=== PATIENT | female | born 1970 | race American Indian/Alaskan Native ===

== ENCOUNTER 2018-11-30 09:17 | Day surgery (SDC) | payer OTHER ==
[2018-11-27 14:23] LABS: Absolute Lymphocytes (CBC) 1.3 K/uL (0.7-4.9); Absolute Monocytes 0.5 K/uL (0.1-1.3); Basophils % 0.9 % (0-1.3); Hematocrit 38.5 % (36.0-45.0); Lymphocytes % 21.9 % (15.3-44.8); MPV 8.8 fL (7.6-11.3); Monocytes % 8.2 % (3.3-12.3)
[2018-11-27 14:43] LABS: Urine Appearance CLEAR; Urine Bilirubin NEGATIVE (NEG); Urine Blood NEGATIVE (NEG); Urine Color YELLOW; Urine Glucose NEGATIVE (NEG); Urine Protein NEGATIVE (NEG); Urine Urobilinogen 0.2 mg/dL (0.2-1.0)
[2018-11-27 14:47] LABS: Urine Microscopic Reflex NO UMIC
[~2018-11-30 09:17] MED LIST: CEFAZOLIN/SWI 2gm 2 GM/20 ML SYR IVP SCH; Ringers Lactate 1,000 ML IV SCH; SCOPOLAMINE HYDROBROMIDE PATCH TD SCH
[2018-11-30] MEDS ORDERED: Ringers Lactate 1,000 ML IV ONE (09:35)
[2018-11-30] MEDS ORDERED: SCOPOLAMINE HYDROBROMIDE PATCH TD ONE (09:35)
--- OUTSIDE RECORDS SUMMARY | 2018-11-30 09:37 | XMS REPORT | Clinical Summary ---
:1970 Author Organization [facility] Address [address] [place] [address] Care Team Providers Name Role Phone Marylin Nelson MD Primary Care Provider Allergies No Known Allergies Medications No known medications Active Problems No known active problems Encounters Date Type Specialty Care Team Description 09/20/2018 Office Visit Urology Jessika Quezada Urinary frequency (Primary Dx); MD Eric Polyuria; Polydipsia 08/02/2018 Office Visit Urology Jessika Quezada Urinary frequency (Primary Dx); MD Eric Weakness of both legs; Dyspareunia in female after 11/29/2017 Social History Tobacco Use Types Packs/Day Years Used Date Unknown If Ever Smoked Sex Assigned at Date Recorded Not on file Job Start Date Occupation Industry Not on file Not on file Not on file Travel History Travel Start Travel End No recent travel history available. Last Filed Vital Signs Not on file Plan of Treatment Health Maintenance Due Date Last Done Comments CERVICAL CANCER SCREENING 1992 INFLUENZA VACCINE 05/17/2018 Procedures Procedure Name Priority Date/Time Associated Comments Diagnosis POC URINALYSIS Routine 09/20/2018 12:04 PM Urinary frequency Results for this DIPSTICK [employer] procedure are in the results section. [id number] Routine 09/20/2018 12:03 PM Urinary frequency Results for this [employer] procedure are in the results section. POC URINALYSIS Routine 08/02/2018 11:06 AM Urinary frequency Results for this DIPSTICK CDT procedure are in the results section. [id number] Routine 08/02/2018 11:06 AM Urinary frequency Results for this CDT procedure are in the results section. after 11/29/2017 Results POC urinalysis dipstick (09/20/2018 12:04 PM [employer])Only the most recent of2 resultswithin the time period is included. Color urine, POC Yellow Clarity urine, POC Clear Glucose urine, POC Negative Negative Bilirubin urine, POC Negative Negative Ketones urine, POC Negative Negative Specific gravity urine, POC 1.010 1.005 - 1.030 Blood urine, POC Negative Negative pH urine, POC 6.5 5.0, 5.5, 6.0, 6.5, 7.0, 7.5, 8.0, 8.5 Protein urine, POC Negative Negative Urobilinogen urine, POC <2.0 <2.0 Nitrite urine, POC Negative Negative Leukocyte esterase urine, POC Negative Negative Specimen Urine POC BLADDER SCAN/PVR (09/20/2018 12:03 PM [employer])Only the most recent of2 resultswithin the time period is included. Volume 0ml Specimen Urine after 11/29/2017 Insurance Payer Benefit Plan / Group Subscriber ID Type Phone Address [employer] ([place] [place] [address] Advance Directives Patient has advance care planning documents on file. For more information, please contact:[place] [address]
[2018-11-30] MEDS ORDERED: ONDANSETRON 4 MG/2 ML VIAL ONE (10:36)
[2018-11-30] MEDS ORDERED: ROCURONIUM 50 MG/5 ML VIAL IV ONE (10:36)
[2018-11-30] MEDS ORDERED: DEXAMETHASONE 4 MG/ML VIAL ONE (10:36)
[2018-11-30] MEDS ORDERED: MIDAZOLAM HCL 2 MG/2 ML INJ ONE (10:36)
[2018-11-30] MEDS ORDERED: PROPOFOL 200 MG/20 ML VIAL IV ONE (10:36)
[2018-11-30] MEDS ORDERED: FENTANYL CITR 250 MCG/5 ML ONE (10:36)
[2018-11-30] MEDS ORDERED: LIDOCAINE 2% MPF 5 ML VIAL ONE (10:36)
[2018-11-30] MEDS ORDERED: EPHEDRINE SULF 50 MG/ML VIAL ONE (11:33)
[2018-11-30] MEDS ORDERED: GLYCOPYRROLATE 0.2 MG/ML SYR ONE (11:38)
[2018-11-30] MEDS ORDERED: KETOROLAC 30 MG/ML INJ ONE (13:21)
[2018-11-30] MEDS ORDERED: HYDROCODONE/APAP 5/325 MG TAB PO PRN (13:39)
[2018-11-30] MEDS ORDERED: PROMETHAZINE 25 MG/ML VIAL IV PRN (13:39)
[2018-11-30] MEDS ORDERED: MEPERIDINE HCL 25 MG/0.5 ML IM PRN (13:39)
[2018-11-30] MEDS ORDERED: IBUPROFEN 200 MG TAB PO PRN (13:39)
[2018-11-30] MEDS: HYDROMORPHONE HCL 1 MG/ML INJ ONE ×2 (14:04→14:30)
[2018-11-30] MEDS ORDERED: PROMETHAZINE 25 MG/ML VIAL ONE (14:13)
[2018-11-30] MEDS ORDERED: HYDROCODONE/APAP 5/325 MG TAB ONE (15:58)
--- NOTE | 2018-12-18 08:22 | OP ---
Date of Procedure: 12/03/2018 Surgeon: Liyah Duvall MD Account Coordinator: Loni Ayala. Preoperative Diagnoses: Heavy periods, menorrhagia, pelvic pain, dysmenorrhea. Postoperative Diagnoses: Heavy periods, menorrhagia, pelvic pain, dysmenorrhea, endometriosis, and a dhesions. Procedures Performed: Total laparoscopic hysterectomy, bilateral salpingectomy, endometriosis excisi on, and lysis of adhesions. Anesthesia: General endotracheal. Estimated Blood Loss: Minimal. Specimens: Uterus, bilateral tubes, ovaries retained, endometriosis from the left lateral wall utero sacral on the left and some part of it included with the excised completely and handed out separately. The patient also had leiomyomata, which was removed along with the uterus. Findings: Endometriosis of the left posterior broad ligament close to the uterosacral on the left si de, anterior abdominal wall on the right side due to her open appendectomy when she was a child. Sig nificant scar tissue was present with omental adhesions and bowel adhesions to the right lower quadra nt as well as to the right broad ligament. The ovaries appeared to be completely unremarkable and no other endometriosis was found. The ovaries were preserved without any problems. Indications: The patient is a 48-year-old with heavy bleeding, pelvic pain, dysmenorrhea, investigat ed with a transvaginal ultrasound, found to have fibroids, about 5 were found, the largest of which w as 4.5 cm. Both ovaries appeared to be unremarkable and there was no atypia or malignancy was found. So, we discussed the options of medical treatment of this problem and surgical treatment options. The patient was in significant pain and wanted to have complete pain relief. On my examination, 6-8 weeks uterus with tender posterior cul-de-sac and nodular left uterosacral ligament. Left adnexa was tender more than the right, but both adnexa were tender on exam, so we discussed about suppression w ith OCs, depot medroxyprogesterone, IUD, endometriosis excision followed by depot, and we also talked about the IUD. After having multiple discussion and having the risks and benefits discussed, the pa lin wanted to proceed with hysterectomy, bilateral salpingectomy as her pain has diminished her eboni lity of life significantly to the point that she is unable to tolerate daily activities of living. S he also has significant urinary frequency, for which she needed to see a urologist. We discussed abo ut the 65% chance that the pain will be resolved if this surgery is done, remaining 35%, 5% could get worse, and 30% of the time, the pain can be unchanged despite a hysterectomy. The patient understoo d this. She has endometriosis, extensively the ovaries would be removed, but otherwise, endometriosi s excision will be done and ovaries preserved, this could increase the risk of recurrent surgery for pain. The patient understood this, however, wanted to preserve her ovarian function, so this was con sented as well. The patient was consented for hysterectomy, bilateral salpingectomy, endometriosis e xcision. Description Of Procedure: A 2 g of Ancef were given. She was brought to the OR. She was placed in supine fashion on the operating table. After general anesthesia was given, she was placed in dorsal lithotomy position using Luis stirrups. Arms were tucked by the side. The abdomen, vulva, vagina, and perineum were prepped and draped in a sterile fashion. Humphries was placed to drain the bladder and attached to cysto tubing for retrograde filling. A large VCare was fixed in place and this area was draped. A 1 cm infraumbilical incision was made with a scalpel using the open laparoscopy technique . Fascia was incised, tagged, and peritoneum entered bluntly. S retractor was placed. Vimal was i ntroduced. Site of entry was checked, unremarkable. Upper abdominal surface was completely unremark able as well as gallbladder, no problems. No upper abdominal endometriosis was seen. Omentum normal . In the right lower quadrant, extensive adhesions were seen here, needed to have another port durin g this procedure, so we went on to take down the adhesions after placing a 5 mm left lower quadrant a nd 10 mm suprapubic ports. The suprapubic port was difficult to place, so the left lower quadrant po rt was placed. The omental adhesions were taken down from the anterior abdominal wall to clear the s uprapubic area, and once the 10 mm port was introduced, dissection was performed with both hands to c reate windows, to take down the omentum attached to the anterior abdominal wall multiple layers, then bowel was also seen attached and this was taken down sharply with the help of the cutting aspect of the LigaSure without cautery. After successful takedown, a 5 mm right lower quadrant incision was ma reyna and a trocar was introduced through here, then we proceeded with the surgery. On examination, bot h ureteral orifices and both the ureters were placed without any distortion, normal anatomy. The [place] rosacral ligament endometriosis on the left side was visible and endometriosis excision was first per formed here by picking it up and taken down with the help of the scissors as well as the monopolar de vice, then the bipolar LigaSure. This was excised, then the rest of it was included with the uterine specimen by dissecting the vessels and the ureter at the level of the ureteric tunnel. Once this wa s done, then there was to dissect the posterior broad ligament without any problems on the left side. The ovaries were completely normal, so plan was to retain them. After the left anterior broad ligament was opened up, then dissection of the peritoneum was performed all the way to the rig ht side and the bladder flap was created here. The round ligament was taken down on the left side, u tero-ovarian ligament, tube, mesosalpinx all taken down, posterior broad ligament connected all the w ay to the level of the uterosacral inferior to the aspect of the dissection of the endometriosis. Th ere was some more endometriosis left, which was picked up and dissection was performed to clear it fr om the surrounding structures and the uterine artery. Once this was done, this was then peeled off m edially without any injury to the vessels or bleeding. On the opposite side, similar dissection was performed to take down the mesosalpinx, tube, utero-ovarian ligament, round ligament, and the broad l igament was opened up anteriorly and posteriorly and the posterior broad ligament was taken to the [facility] uterosacral anteriorly. The peritoneum was connected. Broad ligament was taken down, vessels sk eletonized. The vesicovaginal space was opened with the help of monopolar hook blade in the suprapub ic area right above the cervix. Once this was cleared up and the bladder was pushed inferiorly and o nce it was exposed, then the vessels were taken down, first on the right then on the left. Both card inal ligaments and the descending branches were taken down as well. Once this was done, the uterus _ . Circumferential colpotomy with a monopolar hook blade was done and the specimen was pulle d out through the vagina and the vaginal occluder bulb was placed. Both tubes were completely resect ed from the mesosalpinx and removed. Thorough irrigation and suction were performed. There was no e vidence of electrical, mechanical, or thermal injury to the ureters. They appeared to be completely unremarkable. The vaginal cuff was closed with simple 0 Vic[address] suture on a [address]-1 needle on both ends and . The peritoneum was closed with 3-0 Vicryl and thorough irrigation and suction were p erformed. The gas was desufflated. The trocars were pulled out under direct vision. Fascia at the umbilicus was closed with the help of a 0 Vicryl, which was used as tacking suture on each side of th e fascial incision, this was brought together. The suprapubic site was closed with the he lp of simple 0 Vicryl stitch. All the other incisions were closed with the help of interrupted 4-0 M onocryl sutures. The Humphries was removed, VCare bulb was removed. The patient was recovered from anes thesia and taken to PACU in stable condition. She will follow up with me in 1 week. EBL was minimal . SHAY/TIGRE Voice ID: [id number] Report ID: [id number]
== END 2018-11-30 18:00 | disposition home or self-care (01) ==
LOC: OR 09:17
PROVIDERS: ATTEND Obstetrics & Gynecology
PROC: 0UT7FZZ Resection of Bilateral Fallopian Tubes, Via Natural or Artificial Opening With Percutaneous Endoscopic Assistance (ICD-10-PCS; 2018-11-30)
PROC: 0UT9FZZ Resection of Uterus, Via Natural or Artificial Opening With Percutaneous Endoscopic Assistance (ICD-10-PCS; principal; 2018-11-30 10:30)
DX: N92.1 Excessive and frequent menstruation with irregular cycle (principal); N94.5 Secondary dysmenorrhea; N94.12 Deep dyspareunia; N80.0 Endometriosis of uterus; N72 Inflammatory disease of cervix uteri; N88.8 Other specified noninflammatory disorders of cervix uteri; D25.9 Leiomyoma of uterus, unspecified; N83.8 Other noninflammatory disorders of ovary, fallopian tube and broad ligament; K66.0 Peritoneal adhesions (postprocedural) (postinfection); N73.6 Female pelvic peritoneal adhesions (postinfective)
CPT/HCPCS: 36415; 80048; 81003; 81025; 83735; 85025; 86850; 86900; 86901; 88305; 88307; J0690; J1170; J2250; J2405; J2550; J2704; J3010